=== PATIENT | male | born 1955 | race Caucasian/White ===

== ENCOUNTER 2024-12-02 10:30 | Outpatient (CLI) | payer MEDICARE, MEDICAID ==
[~2024-12-02 10:30] MED LIST: ASPI-611 PO; DOCU-28 PO; LANS30CA56 PO; LOSA25TA41 PO; MAGN296S89 PO
--- NOTE | 2024-12-02 12:55 | RADIOLOGY REPORT ---
INDICATION: PAIN IN RIGHT AND LEFT HIP, LUMBAR PAIN COMPARISON: None TECHNIQUE: 6 views of the lumbar spine were obtained. FINDINGS: Moderate multilevel degenerative disc disease of the lumbosacral spine. Mild levoscoliosis centered a t the L3-L4 vertebral body. No acute fracture, vertebral compression deformity or aggressive osseous lesions. The paravertebral soft tissues are grossly unremarkable. IMPRESSION: No acute fracture.
--- NOTE | 2024-12-02 14:29 | RADIOLOGY REPORT ---
CLINICAL INDICATION: PAIN IN RIGHT AND LEFT HIP, LUMBAR PAIN TECHNIQUE: 2 radiographic views of the pelvis were obtained. Comparison: None FINDINGS/IMPRESSION: There is no evidence of acute fracture or dislocation. Moderate bilateral femoroacetabular joint osteoarthrosis. ICE/[facility] HEALTH AIDE NAHOMY
== END 2024-12-02 23:59 | disposition home or self-care (01) ==
LOC: RAD 10:30
PROVIDERS: ATTEND Family Medicine
DX: M16.0 Bilateral primary osteoarthritis of hip (principal); M25.552 Pain in left hip; M54.50 Low back pain, unspecified; M41.87 Other forms of scoliosis, lumbosacral region
CPT/HCPCS: 72110; 73502